=== PATIENT | male | born 1965 | race Caucasian/White ===

== ENCOUNTER 2017-08-31 20:37 | Emergency (ER) | payer SELFPAY, OTHER | END 2017-09-01 04:23 | disposition left against medical advice (07) | LOC: E/R 20:37 | DX: Z53.21 Procedure and treatment not carried out due to patient leaving prior to being seen by health care provider (principal) ==

== ENCOUNTER 2017-09-01 13:49 | Inpatient (IN) | payer OTHER ==
[2017-09-01] MEDS: SOD CHLORIDE 0.9% 1,000 ML IV (19:26)
[2017-09-01] MEDS: HYDROmorphONE 1 MG/ML SYG IV (19:27)
[2017-09-01 20:18] LABS: ADD MAN DIFF? NO
[2017-09-01 20:23] LABS: BASOPHILS % 0.4 % (0.0-2.0); EOSINOPHILS % 0.9 % (0.0-7.0); HEMATOCRIT 29.2 % (42.0-52.0); HEMOGLOBIN 8.9 g/dl (14.0-18.0); LYMPHOCYTES # 0.9 10^3/ul (0.8-2.9); LYMPHOCYTES % 19.3 % (15.0-51.0); MEAN CORPUSCULAR HGB CONC 30.5 g/dl (32.0-37.0); MEAN CORPUSCULAR VOLUME 91.8 fl (82.0-101.0); MEAN PLATELET VOLUME 10.5 fl (7.4-10.4); MONOCYTE # 0.4 10^3/ul (0.3-0.9); MONOCYTES % 8.6 % (0.0-11.0); NEUTROPHIL # 3.3 10^3/ul (1.6-7.5); NEUTROPHILS % 70.2 % (39.0-77.0); PLATELET COUNT 129 10^3/UL (140-415); RED BLOOD COUNT 3.18 10^6/ul (4.70-6.10); RED CELL DISTRIBUTION WIDTH 18.5 % (11.5-14.5)
[2017-09-01 20:23] LABS: WHITE BLOOD COUNT 4.7 10^3/ul (4.8-10.8)
[2017-09-01 20:40] LABS: ADD UMIC YES; UR ASCORBIC ACID 40 mg/dL (NEGATIVE); UR BACTERIA FEW /HPF (NONE SEEN); UR BILIRUBIN (Dip) NEGATIVE (NEGATIVE); UR BLOOD (Dip) NEGATIVE (NEGATIVE); UR CLARITY SLIGHTLY CLOUDY (CLEAR); UR COLOR YELLOW (YELLOW); UR GLUCOSE (Dip) 3+ mg/dL (NEGATIVE); UR KETONES (Dip) NEGATIVE (NEGATIVE); UR LEUKOCYTE ESTERASE (Dip) NEGATIVE Leu/ul (NEGATIVE); UR MUCUS FEW /HPF (NONE SEEN); UR NITRITE (Dip) POSITIVE (NEGATIVE); UR RBC 3 /HPF (0-5); UR SPECIFIC GRAVITY (Dip) 1.017 (1.003-1.030); UR TOTAL PROTEIN (Dip) 2+ mg/dl (NEGATIVE); UR UROBILINOGEN (Dip) NEGATIVE (NEGATIVE); UR WBC 17 /HPF (0-5)
[2017-09-01 20:45] LABS: ALANINE AMINOTRANSFERASE 25 IU/L (13-69); ALBUMIN 3.6 g/dl (3.3-4.9); ALBUMIN/GLOBULIN RATIO 1.33; ALKALINE PHOSPHATASE 284 IU/L (42-121); ANION GAP 13 (8-16); ASPARTATE AMINO TRANSFERASE 31 IU/L (15-46); BILIRUBIN,INDIRECT 0.6 mg/dl (0-1.1); BILIRUBIN,TOTAL 0.6 mg/dl (0.2-1.3); BLOOD UREA NITROGEN 9 mg/dl (7-20); CALCIUM 8.6 mg/dl (8.4-10.2); CARBON DIOXIDE 24 mmol/L (21-31); CHLORIDE 106 mmol/L (97-110); CREATINE KINASE 99 IU/L (23-200); CREATININE 0.88 mg/dl (0.61-1.24); GLUCOSE 206 mg/dl (70-220); POTASSIUM 3.5 mmol/L (3.5-5.1); SODIUM 139 mmol/L (135-144); TOTAL PROTEIN 6.3 g/dl (6.1-8.1)
[2017-09-01 20:53] LABS: CK INDEX 0.2
[2017-09-01 21:02] LABS: B-TYPE NATRIURETIC PEPTIDE 184 PG/ML (0-125); CK-MB < 0.22 ng/ml (0.0-2.4)
[2017-09-01 21:08] LABS: TROPONIN-I < 0.012 ng/ml (0.00-0.12)
[2017-09-01] MEDS: CEFTRIAXONE 1 GM/50 ML (PMX) 50 ML IVPB (21:40)
[2017-09-01] MEDS ORDERED: ACETAMINOPHEN 325 MG TAB PO (22:00)
[2017-09-01] MEDS ORDERED: ONDANSETRON 4 MG INJ IV (22:00)
[2017-09-02] MEDS ORDERED: HYDROCODONE/APAP (5/325) TAB PO (01:30)
[2017-09-02] MEDS ORDERED: DEXTROSE 50% 50 ML SYRINGE IV ×2 (01:30)
[2017-09-02] MEDS ORDERED: GLUCOSE GEL 15 GRAM TUBE PO ×2 (01:30)
[2017-09-02] MEDS ORDERED: GLUCAGON 1 MG INJ IM (01:30)
[2017-09-02] MEDS ORDERED: GLUCOSE GEL 15 GRAM TUBE BUCCAL (01:30)
[2017-09-02] MEDS ORDERED: ONDANSETRON 4 MG INJ IV (03:00)
[2017-09-02] MEDS ORDERED: ACETAMINOPHEN 325 MG TAB PO (03:00)
[2017-09-02] MEDS: SOD CHLORIDE 0.9% 1,000 ML IV ×2 (03:05→17:39)
[2017-09-02] MEDS: HYDROCODONE/APAP (5/325) TAB PO (03:10)
[2017-09-02 06:08] LABS: ADD MAN DIFF? NO
[2017-09-02 06:27] LABS: BASOPHILS % 0.7 % (0.0-2.0); EOSINOPHILS # 0.1 10^3/ul (0.0-0.5); EOSINOPHILS % 1.3 % (0.0-7.0); HEMATOCRIT 27.2 % (42.0-52.0); HEMOGLOBIN 8.4 g/dl (14.0-18.0); LYMPHOCYTES % 21.7 % (15.0-51.0); MEAN CORPUSCULAR HEMOGLOBIN 28.4 pg (29.0-33.0); MEAN CORPUSCULAR HGB CONC 30.9 g/dl (32.0-37.0); MEAN CORPUSCULAR VOLUME 91.9 fl (82.0-101.0); MEAN PLATELET VOLUME 10.3 fl (7.4-10.4); MONOCYTE # 0.3 10^3/ul (0.3-0.9); MONOCYTES % 7.4 % (0.0-11.0); NEUTROPHILS % 68.2 % (39.0-77.0); PLATELET COUNT 121 10^3/UL (140-415); RED BLOOD COUNT 2.96 10^6/ul (4.70-6.10); RED CELL DISTRIBUTION WIDTH 18.3 % (11.5-14.5)
[2017-09-02 06:27] LABS: WHITE BLOOD COUNT 4.5 10^3/ul (4.8-10.8)
[2017-09-02 07:05] LABS: ANION GAP 11 (8-16); BLOOD UREA NITROGEN 8 mg/dl (7-20); CALCIUM 7.8 mg/dl (8.4-10.2); CARBON DIOXIDE 21 mmol/L (21-31); CHLORIDE 111 mmol/L (97-110); CREATININE 0.84 mg/dl (0.61-1.24); GLUCOSE 119 mg/dl (70-220); POTASSIUM 3.3 mmol/L (3.5-5.1); SODIUM 140 mmol/L (135-144)
[2017-09-02] MEDS ORDERED: metFORMIN 500 MG TAB PO (07:50)
[2017-09-02] MEDS ORDERED: GLIMEPIRIDE 4 MG TAB PO (07:50)
[2017-09-02] MEDS ORDERED: LINAGLIPTIN 5 MG TABLET PO (09:00)
[2017-09-02] MEDS ORDERED: ENALAPRIL 10 MG TAB PO (09:00)
[2017-09-02] MEDS: INSULIN ASPART [NOVOLOG] 3 ML PEN SC ×4 (09:15→20:30)
[2017-09-02] MEDS: BICALUTAMIDE 50 MG TAB PO (09:28)
[2017-09-02] MEDS: FERROUS SULFATE (EC) 325 MG TAB PO ×2 (09:28→20:30)
[2017-09-02] MEDS: ASCORBIC ACID 500 MG TAB PO ×2 (09:29→20:30)
[2017-09-02] MEDS: FAMOTIDINE 20 MG TAB PO ×2 (09:29→20:29)
[2017-09-02] MEDS ORDERED: POTASSIUM CHLORIDE 50 ML IVPB (11:30)
[2017-09-02] MEDS: POTASSIUM CHLORIDE (SR) 20 MEQ TAB PO (13:27)
[2017-09-02] MEDS ORDERED: POTASSIUM CHLORIDE 40 MEQ in DEXTROSE 5% 250 ML IV (14:00)
[2017-09-02] MEDS: CEFTRIAXONE 1 GM/50 ML (PMX) 50 ML IVPB (20:28)
[2017-09-02] MEDS: TERAZOSIN 5 MG CAP PO (20:29)
[2017-09-02] MEDS: ATORVASTATIN 20 MG TAB PO (20:29)
[2017-09-02] MEDS ORDERED: TERAZOSIN 5 MG CAP PO (21:00)
[2017-09-02] MEDS ORDERED: CEFTRIAXONE 1 GM/50 ML (PMX) 50 ML IVPB (21:00)
[2017-09-02] MEDS: ACCU-CHEK XX (23:59)
[2017-09-03 05:37] LABS: ADD MAN DIFF? NO
[2017-09-03 05:47] LABS: WHITE BLOOD COUNT 4.2 10^3/ul (4.8-10.8)
[2017-09-03 05:47] LABS: BASOPHILS % 0.7 % (0.0-2.0); EOSINOPHILS # 0.1 10^3/ul (0.0-0.5); EOSINOPHILS % 1.2 % (0.0-7.0); HEMATOCRIT 27.3 % (42.0-52.0); HEMOGLOBIN 8.4 g/dl (14.0-18.0); LYMPHOCYTES % 24.6 % (15.0-51.0); MEAN CORPUSCULAR HEMOGLOBIN 28.2 pg (29.0-33.0); MEAN CORPUSCULAR HGB CONC 30.8 g/dl (32.0-37.0); MEAN CORPUSCULAR VOLUME 91.6 fl (82.0-101.0); MEAN PLATELET VOLUME 9.6 fl (7.4-10.4); MONOCYTE # 0.3 10^3/ul (0.3-0.9); MONOCYTES % 7.9 % (0.0-11.0); NEUTROPHIL # 2.7 10^3/ul (1.6-7.5); NEUTROPHILS % 65.1 % (39.0-77.0); PLATELET COUNT 117 10^3/UL (140-415); RED BLOOD COUNT 2.98 10^6/ul (4.70-6.10); RED CELL DISTRIBUTION WIDTH 17.6 % (11.5-14.5)
[2017-09-03 06:21] LABS: BLOOD UREA NITROGEN 11 mg/dl (7-20); CALCIUM 7.9 mg/dl (8.4-10.2); CARBON DIOXIDE 23 mmol/L (21-31); CHLORIDE 110 mmol/L (97-110); CREATININE 0.88 mg/dl (0.61-1.24); GLUCOSE 113 mg/dl (70-220); MAGNESIUM 2.4 mg/dl (1.7-2.5); SODIUM 140 mmol/L (135-144)
[2017-09-03 06:53] LABS: ANION GAP 10 (8-16)
[2017-09-03] MEDS: SOD CHLORIDE 0.9% 1,000 ML IV (06:59)
[2017-09-03 07:04] LABS: POTASSIUM 3.3 mmol/L (3.5-5.1)
[2017-09-03] MEDS: INSULIN ASPART [NOVOLOG] 3 ML PEN SC ×4 (07:50→20:24)
[2017-09-03] MEDS: FERROUS SULFATE (EC) 325 MG TAB PO ×2 (09:04→20:20)
[2017-09-03] MEDS: FAMOTIDINE 20 MG TAB PO ×2 (09:04→20:20)
[2017-09-03] MEDS: ASCORBIC ACID 500 MG TAB PO ×2 (09:04→20:20)
[2017-09-03] MEDS: SOD PHOS MONO/DIBAS 250 MG TAB PO (09:45)
[2017-09-03] MEDS: BICALUTAMIDE 50 MG TAB PO (09:47)
[2017-09-03 15:27] LABS: INR 1.18; PROTIME 15.2 Sec (11.9-14.9); PT RATIO 1.2
[2017-09-03 15:28] LABS: PARTIAL THROMBOPLASTIN TIME 33.9 Sec (25.0-35.0)
[2017-09-03 19:22] LABS: IRON 41 ug/dl (35-150)
[2017-09-03 19:31] LABS: % IRON SATURATION 19 % SAT (22-52); TOTAL IRON BINDING CAPACITY 215 ug/dl (241-421)
[2017-09-03 19:47] LABS: URIC ACID 2.7 mg/dl (3.1-7.9)
[2017-09-03 19:53] LABS: LACTATE DEHYDROGENASE 2823 IU/L (313-618)
[2017-09-03] MEDS: TERAZOSIN 5 MG CAP PO (20:20)
[2017-09-03] MEDS: ATORVASTATIN 20 MG TAB PO (20:20)
[2017-09-03] MEDS: CEFTRIAXONE 1 GM/50 ML (PMX) 50 ML IVPB (20:28)
[2017-09-03 20:50] LABS: FOLATE 5.1 ng/ml (2.8-20.0)
[2017-09-03 21:05] LABS: ERYTHROCYTE SEDIMENTATION RATE 8 mm/Hr (0-20)
[2017-09-04] MEDS: ACCU-CHEK XX (02:00)
[2017-09-04 05:28] LABS: ADD MAN DIFF? NO
[2017-09-04 05:30] LABS: BASOPHILS % 0.5 % (0.0-2.0); EOSINOPHILS # 0.1 10^3/ul (0.0-0.5); EOSINOPHILS % 1.2 % (0.0-7.0); HEMATOCRIT 25.6 % (42.0-52.0); HEMOGLOBIN 8.1 g/dl (14.0-18.0); LYMPHOCYTES # 0.9 10^3/ul (0.8-2.9); LYMPHOCYTES % 20.9 % (15.0-51.0); MEAN CORPUSCULAR HEMOGLOBIN 28.7 pg (29.0-33.0); MEAN CORPUSCULAR HGB CONC 31.6 g/dl (32.0-37.0); MEAN CORPUSCULAR VOLUME 90.8 fl (82.0-101.0); MEAN PLATELET VOLUME 9.9 fl (7.4-10.4); MONOCYTE # 0.3 10^3/ul (0.3-0.9); NEUTROPHIL # 2.9 10^3/ul (1.6-7.5); NEUTROPHILS % 68.9 % (39.0-77.0); PLATELET COUNT 117 10^3/UL (140-415); RED BLOOD COUNT 2.82 10^6/ul (4.70-6.10); RED CELL DISTRIBUTION WIDTH 17.5 % (11.5-14.5)
[2017-09-04 05:30] LABS: WHITE BLOOD COUNT 4.3 10^3/ul (4.8-10.8)
[2017-09-04 06:03] LABS: ANION GAP 11 (8-16); BLOOD UREA NITROGEN 12 mg/dl (7-20); CALCIUM 7.8 mg/dl (8.4-10.2); CARBON DIOXIDE 23 mmol/L (21-31); CHLORIDE 110 mmol/L (97-110); CREATININE 0.92 mg/dl (0.61-1.24); GLUCOSE 136 mg/dl (70-220); POTASSIUM 3.3 mmol/L (3.5-5.1); SODIUM 141 mmol/L (135-144)
[2017-09-04] MEDS: INSULIN ASPART [NOVOLOG] 3 ML PEN SC ×4 (07:50→21:00)
[2017-09-04] MEDS: ASCORBIC ACID 500 MG TAB PO ×2 (08:28→21:04)
[2017-09-04] MEDS: FERROUS SULFATE (EC) 325 MG TAB PO ×2 (08:28→21:03)
[2017-09-04] MEDS: FAMOTIDINE 20 MG TAB PO ×2 (08:28→21:03)
[2017-09-04] MEDS: HYDROCODONE/APAP (5/325) TAB PO ×2 (08:28→21:02)
[2017-09-04] MEDS: BICALUTAMIDE 50 MG TAB PO (08:34)
[2017-09-04] MEDS: SOD CHLORIDE 0.9% 100 ML (08:56)
[2017-09-04] MEDS: IOHEXOL 300MG/ML 150 ML BTL (08:57)
[2017-09-04] MEDS: POTASSIUM CHLORIDE (SR) 20 MEQ TAB PO (11:46)
[2017-09-04] MEDS: ATORVASTATIN 20 MG TAB PO (21:03)
[2017-09-04] MEDS: TERAZOSIN 5 MG CAP PO (21:03)
[2017-09-04] MEDS: CEFTRIAXONE 1 GM/50 ML (PMX) 50 ML IVPB (21:13)
[2017-09-05] MEDS: ACCU-CHEK XX (02:00)
[2017-09-05 07:55] LABS: ADD UMIC YES; UR ASCORBIC ACID 40 mg/dL (NEGATIVE); UR BILIRUBIN (Dip) NEGATIVE (NEGATIVE); UR BLOOD (Dip) 2+ mg/dL (NEGATIVE); UR CLARITY CLEAR (CLEAR); UR COLOR STRAW (YELLOW); UR GLUCOSE (Dip) 3+ mg/dL (NEGATIVE); UR KETONES (Dip) NEGATIVE (NEGATIVE); UR LEUKOCYTE ESTERASE (Dip) NEGATIVE Leu/ul (NEGATIVE); UR NITRITE (Dip) NEGATIVE (NEGATIVE); UR RBC 25 /HPF (0-5); UR SPECIFIC GRAVITY (Dip) 1.014 (1.003-1.030); UR TOTAL PROTEIN (Dip) 2+ mg/dl (NEGATIVE); UR UROBILINOGEN (Dip) NEGATIVE (NEGATIVE); UR WBC 4 /HPF (0-5)
[2017-09-05] MEDS: ASCORBIC ACID 500 MG TAB PO ×2 (08:45→20:32)
[2017-09-05] MEDS: FAMOTIDINE 20 MG TAB PO ×2 (08:45→20:32)
[2017-09-05] MEDS: FERROUS SULFATE (EC) 325 MG TAB PO ×2 (08:45→20:32)
[2017-09-05] MEDS: BICALUTAMIDE 50 MG TAB PO (08:46)
[2017-09-05] MEDS: INSULIN ASPART [NOVOLOG] 3 ML PEN SC ×4 (08:49→20:37)
[2017-09-05] MEDS: CEFTRIAXONE 1 GM/50 ML (PMX) 50 ML IVPB (20:32)
[2017-09-05] MEDS: ATORVASTATIN 20 MG TAB PO (20:32)
[2017-09-05] MEDS: TERAZOSIN 5 MG CAP PO (20:34)
[2017-09-06] MEDS: ACCU-CHEK XX (02:00)
[2017-09-06] MEDS: INSULIN ASPART [NOVOLOG] 3 ML PEN SC ×4 (08:45→20:29)
[2017-09-06] MEDS: FERROUS SULFATE (EC) 325 MG TAB PO ×2 (09:52→20:24)
[2017-09-06] MEDS: BICALUTAMIDE 50 MG TAB PO (09:53)
[2017-09-06] MEDS: FAMOTIDINE 20 MG TAB PO ×2 (09:53→20:24)
[2017-09-06] MEDS: ASCORBIC ACID 500 MG TAB PO ×2 (09:53→20:24)
[2017-09-06] MEDS: POLYETHYLENE GLYCOL 17 GM PACKET PO (14:27)
[2017-09-06] MEDS: BISACODYL (EC) 5 MG TAB PO (14:28)
[2017-09-06] MEDS: ASPIRIN 81 MG TAB PO (18:22)
[2017-09-06] MEDS: CEFTRIAXONE 1 GM/50 ML (PMX) 50 ML IVPB (20:23)
[2017-09-06] MEDS: DOCUSATE SODIUM 100 MG CAP PO (20:24)
[2017-09-06] MEDS: ATORVASTATIN 20 MG TAB PO (20:24)
[2017-09-06] MEDS: TERAZOSIN 5 MG CAP PO (20:26)
[2017-09-07] MEDS: ACCU-CHEK XX (01:29)
[2017-09-07] MEDS: INSULIN ASPART [NOVOLOG] 3 ML PEN SC ×2 (08:45→11:40)
[2017-09-07] MEDS: POLYETHYLENE GLYCOL 17 GM PACKET PO (09:00)
[2017-09-07] MEDS: DOCUSATE SODIUM 100 MG CAP PO (09:00)
[2017-09-07] MEDS: FAMOTIDINE 20 MG TAB PO (09:31)
[2017-09-07] MEDS: ASPIRIN 81 MG TAB PO (09:32)
[2017-09-07] MEDS: FERROUS SULFATE (EC) 325 MG TAB PO (09:32)
[2017-09-07] MEDS: ASCORBIC ACID 500 MG TAB PO (09:32)
[2017-09-07] MEDS: BICALUTAMIDE 50 MG TAB PO (09:33)
[2017-09-07 20:13] LABS: PSA, FREE >17.0 ng/mL
[2017-09-07 21:37] LABS: ERYTHROPOIETIN 42.7 mIU/mL (2.6-18.5)
== END 2017-09-07 13:24 | disposition home or self-care (01) | DRG 606 ==
LOC: MS1 21:37 → E/R 13:49
DX: I89.0 Lymphedema, not elsewhere classified (principal); D61.810 Antineoplastic chemotherapy induced pancytopenia; C79.51 Secondary malignant neoplasm of bone; C77.9 Secondary and unspecified malignant neoplasm of lymph node, unspecified; D69.6 Thrombocytopenia, unspecified; N39.0 Urinary tract infection, site not specified; B96.20 Unspecified Escherichia coli [E. coli] as the cause of diseases classified elsewhere; C61 Malignant neoplasm of prostate; E11.9 Type 2 diabetes mellitus without complications; I10 Essential (primary) hypertension; E78.5 Hyperlipidemia, unspecified; R33.8 Other retention of urine; Z19.2 Hormone resistant malignancy status; R04.0 Epistaxis; D63.0 Anemia in neoplastic disease; E87.6 Hypokalemia; T45.1X5A Adverse effect of antineoplastic and immunosuppressive drugs, initial encounter; M17.12 Unilateral primary osteoarthritis, left knee; Z92.3 Personal history of irradiation; Z79.84 Long term (current) use of oral hypoglycemic drugs
CPT/HCPCS: 36415; 73562; 74177; 80048; 80053; 81001; 82306; 82550; 82553; 82607; 82668; 82728; 82746; 82962; 83540; 83615; 83735; 83880; 84100; 84153; 84154; 84443; 84484; 84560; 85025; 85610; 85651; 85730; 87040; 87086; 93005; 93971; 96374; 96375; 99285-25